=== PATIENT | female | born 1990 | race Caucasian/White ===

== ENCOUNTER 2017-11-06 23:15 | Emergency (ER) | payer MEDICARE, OTHER ==
[2017-11-07 00:04] VITALS: BP 135/83
[2017-11-07] MEDS ORDERED: MOTRIN PO ONE (06:57)
--- NOTE | 2017-11-07 07:24 | XRay Report ---
FINAL REPORT EXAM: XR RIBS UNI W PA CHEST 3+V RT HISTORY: rib pain and coug TECHNIQUE: PA chest radiograph with AP and oblique views of the right rib cage PRIORS: None. FINDINGS: No mediastinal shift. Cardiac silhouette is not enlarged. No pneumothorax, effusion, or focal pulmonary opacity identified. No displaced rib fractures. IMPRESSION: No acute pulmonary finding or displaced rib fractures identified.
--- NOTE | 2017-11-07 07:26 | Emergency Department Report ---
ED Chest Pain HPI - General Chief Complaint: Pain General Stated Complaint: RIB PAIN Time Seen by Provider: 11/07/17 06:54 Source: patient Mode of arrival: Ambulatory Limitations: No Limitations - History of Present Illness Initial Comments: This is a 26-year-old female who presents with right sided rib pain for 2 days. Patient states night she woke up slowly with squeezing sensation to right side of ribs. Patient states she told her father who gave her aspirin for pain. She took aspirin and went back to sleep and woke her from sleep again with squeezing pain to right side of review. She called into work and continue to take aspirin at home with no improvement of symptoms. Patient states pain is worse when she lay on her right side and causes difficulty breathing. She reports discomfort is 7 out of 10 on a scale and intermittent. Patient states discomfort lasts for 10-30 minutes. Patient denies recent injury, congestion, fever, palpitations, and cough. MD Complaint: other (right sided rib pain) Onset/Timin -: days(s) Onset: awoke with symptoms Pain Location: right chest (right rib) Pain Radiation: none - Related Data Home Medications Medication Instructions Recorded Confirmed Last Taken Vits96/Iron Fum/Folic 1 tab PO DAILY 11/27/13 11/27/13 11/26/13 08:00 [ Tablet] Previous Rx's Medication Instructions Recorded Last Taken Type Cephalexin [Keflex] 500 mg PO Q6H #20 capsule 11/27/13 Unknown Rx Acetaminophen/Codeine [Tylenol #3] 1 tab PO Q6H PRN #20 tab 07/04/15 Unknown Rx Ibuprofen [Motrin] 600 mg PO Q8H PRN #50 tablet 07/04/15 Unknown Rx Allergies Allergy/AdvReac Type Severity Reaction Status Date / Time peanut Allergy Unknown Verified 07/04/15 00:25 onions Allergy Severe Swelling Uncoded 10/31/13 15:23 sea food Allergy Unknown Uncoded 07/04/15 00:25 ED Review of Systems ROS: Stated complaint: RIB PAIN Other details as noted in HPI ED Past Medical Hx - Past Medical History Previous Medical History?: Yes Hx Hypertension: No Hx Diabetes: No Hx Deep Vein Thrombosis: No Hx Renal Disease: No Hx Sickle Cell Disease: No Hx Seizures: No Hx Psychiatric Treatment: Yes (Anxiety) Hx Asthma: No Hx HIV: No - Surgical History Past Surgical History?: Yes Additional Surgical History: - Social History Smoking Status: Former Smoker Substance Use Type: None - Medications Home Medications: Home Medications Medication Instructions Recorded Confirmed Last Taken Type Cephalexin [Keflex] 500 mg PO Q6H #20 capsule 11/27/13 Unknown Rx Vits96/Iron Fum/Folic 1 tab PO DAILY 11/27/13 11/27/13 11/26/13 08:00 History [ Tablet] Acetaminophen/Codeine [Tylenol #3] 1 tab PO Q6H PRN #20 tab 07/04/15 Unknown Rx Ibuprofen [Motrin] 600 mg PO Q8H PRN #50 tablet 07/04/15 Unknown Rx ED Physical Exam - General Limitations: No Limitations ED Course Vital Signs 11/06/17 11/07/17 23:56 05:28 Temperature 98.6 F Pulse Rate 100 H 77 Respiratory 20 18 Rate Blood Pressure 135/83 O2 Sat by Pulse 95 99 Oximetry Critical care attestation.: If time is entered above; I have spent that time in minutes in the direct care of this critically ill patient, excluding procedure time. ED Disposition Condition: Stable Referrals: PRIMARY CARE [Primary Care Provider] - 3-5 Days
--- NOTE | 2017-11-07 07:48 | Emergency Department Report ---
ED General Adult HPI - General Chief complaint: Pain General Stated complaint: RIB PAIN Time Seen by Provider: 11/07/17 06:54 Source: patient Mode of arrival: Ambulatory Limitations: No Limitations - History of Present Illness Initial comments: This is a 26-year-old female who presents with right sided rib pain for 2 days. Patient states night she woke up slowly with squeezing sensation to right side of ribs. Patient states she told her father who gave her aspirin for pain. She took aspirin and went back to sleep and woke her from sleep again with squeezing pain to right side of review. She called into work and continue to take aspirin at home with no improvement of symptoms. Patient states pain is worse when she lay on her right side and causes difficulty breathing. She reports discomfort is 7 out of 10 on a scale and intermittent. Patient states discomfort lasts for 10-30 minutes. Patient denies recent injury, congestion, fever, palpitations, and cough. Onset/Timin -: days(s) Location: chest (right-sided rib pain) Radiation: non-radiation Severity scale (0 -10): 7 Quality: other (squeezing) Consistency: intermittent Improves with: none Worsens with: movement Associated Symptoms: denies other symptoms Treatments Prior to Arrival: Aspirin - Related Data Home Medications Medication Instructions Recorded Confirmed Last Taken Vits96/Iron Fum/Folic 1 tab PO DAILY 11/27/13 11/27/13 11/26/13 08:00 [ Tablet] Previous Rx's Medication Instructions Recorded Last Taken Type Cephalexin [Keflex] 500 mg PO Q6H #20 capsule 11/27/13 Unknown Rx Acetaminophen/Codeine [Tylenol #3] 1 tab PO Q6H PRN #20 tab 07/04/15 Unknown Rx Ibuprofen [Motrin] 600 mg PO Q8H PRN #50 tablet 07/04/15 Unknown Rx Cyclobenzaprine [Flexeril 10 MG 10 mg PO TID PRN #15 tablet 11/07/17 Unknown Rx TAB] Ibuprofen [Motrin 600 MG tab] 600 mg PO Q8H PRN #15 tablet 11/07/17 Unknown Rx Allergies Allergy/AdvReac Type Severity Reaction Status Date / Time peanut Allergy Unknown Verified 07/04/15 00:25 onions Allergy Severe Swelling Uncoded 10/31/13 15:23 sea food Allergy Unknown Uncoded 07/04/15 00:25 ED Review of Systems ROS: Stated complaint: RIB PAIN Other details as noted in HPI Constitutional: denies: chills, fever Respiratory: denies: cough, shortness of breath, wheezing Cardiovascular: other (right-sided rib pain). denies: chest pain, palpitations Endocrine: no symptoms reported Gastrointestinal: denies: abdominal pain, nausea, diarrhea Neurological: denies: headache, weakness, paresthesias Psychiatric: denies: anxiety, depression ED Past Medical Hx - Past Medical History Previous Medical History?: Yes Hx Hypertension: No Hx Diabetes: No Hx Deep Vein Thrombosis: No Hx Renal Disease: No Hx Sickle Cell Disease: No Hx Seizures: No Hx Psychiatric Treatment: Yes (Anxiety) Hx Asthma: No Hx HIV: No - Surgical History Past Surgical History?: Yes Additional Surgical History: - Social History Smoking Status: Former Smoker Substance Use Type: None - Medications Home Medications: Home Medications Medication Instructions Recorded Confirmed Last Taken Type Cephalexin [Keflex] 500 mg PO Q6H #20 capsule 11/27/13 Unknown Rx Vits96/Iron Fum/Folic 1 tab PO DAILY 11/27/13 11/27/13 11/26/13 08:00 History [ Tablet] Acetaminophen/Codeine [Tylenol #3] 1 tab PO Q6H PRN #20 tab 07/04/15 Unknown Rx Ibuprofen [Motrin] 600 mg PO Q8H PRN #50 tablet 07/04/15 Unknown Rx Cyclobenzaprine [Flexeril 10 MG 10 mg PO TID PRN #15 tablet 11/07/17 Unknown Rx TAB] Ibuprofen [Motrin 600 MG tab] 600 mg PO Q8H PRN #15 tablet 11/07/17 Unknown Rx ED Physical Exam - General Limitations: No Limitations General appearance: alert, in no apparent distress, obese - ENT ENT exam: Present: mucous membranes moist - Respiratory Respiratory exam: Present: normal lung sounds bilaterally, chest wall tenderness (tenderness at ribs 5 through 7 on the right side). Absent: respiratory distress, accessory muscle use - Cardiovascular Cardiovascular Exam: Present: regular rate, normal rhythm. Absent: systolic murmur, diastolic murmur, rubs, gallop - GI/Abdominal GI/Abdominal exam: Present: soft, normal bowel sounds - Neurological Exam Neurological exam: Present: alert, oriented X3 - Psychiatric Psychiatric exam: Present: normal affect, normal mood - Skin Skin exam: Present: warm, dry, intact, normal color. Absent: rash ED Course Vital Signs 11/06/17 11/07/17 23:56 05:28 Temperature 98.6 F Pulse Rate 100 H 77 Respiratory 20 18 Rate Blood Pressure 135/83 O2 Sat by Pulse 95 99 Oximetry ED Medical Decision Making - Radiology Data Radiology results: report reviewed, image reviewed FINAL REPORT EXAM: XR RIBS UNI W PA CHEST 3+V RT HISTORY: rib pain and coug TECHNIQUE: PA chest radiograph with AP and oblique views of the right rib cage PRIORS: None. FINDINGS: No mediastinal shift. Cardiac silhouette is not enlarged. No pneumothorax, effusion, or focal pulmonary opacity identified. No displaced rib fractures. IMPRESSION: No acute pulmonary finding or displaced rib fractures identified. - Medical Decision Making This is a 26-year-old female who presents with right-sided rib pain for 2 days. Patient was examined by me. Vitals are normal and patient is in no acute distress. Obtained chest x-ray. Chest x-ray dictated by radiologist and report reviewed by myself. No acute pulmonary finding or displaced rib fractures identified. Pain is reproducible on exam between ribs 5 through 7 costal margin. Physical exam susceptible for lower rib syndrome. Patient informed of results. Start ibuprofen and cyclobenzaprine for pain. Plan discussed with patient to discharge home and treat outpatient. Patient discharged home in stable condition. Follow up with PCP in 2-3 days. Critical care attestation.: If time is entered above; I have spent that time in minutes in the direct care of this critically ill patient, excluding procedure time. ED Disposition Clinical Impression: Rib pain on right side, Slipping rib syndrome Disposition: DC-01 TO HOME OR SELFCARE Is pt being admited?: No Does the pt Need Aspirin: No Condition: Stable Instructions: Chest Pain (ED) Additional Instructions: Take ibuprofen and flexeril as needed for pain control. Don't take flexeril while driving or operating heavy machinery, may cause drowsiness. Follow up with primary care provider in 24-72 hours. Return to ER if chest pain unresolved, shortness of breath, or difficulty breathing. Prescriptions: Cyclobenzaprine [Flexeril 10 MG TAB] 10 mg PO TID PRN #15 tablet PRN Reason: Muscle Spasm Ibuprofen [Motrin 600 MG tab] 600 mg PO Q8H PRN #15 tablet PRN Reason: Pain Referrals: [facility] [Outside] - 3-5 Days [facility] [Outside] - 3-5 Days [facility] [Outside] - 3-5 Days Forms: Work/School Release Form(ED) Time of Disposition: 07:53 Print Language: MALAY
== END 2017-11-07 08:18 | disposition home or self-care (01) ==
LOC: ED 23:15
DX: M94.0 Chondrocostal junction syndrome [Tietze] (principal); Z87.891 Personal history of nicotine dependence; Z91.010 Allergy to peanuts; Z91.013 Allergy to seafood; Z91.018 Allergy to other foods
CPT/HCPCS: 99283